=== PATIENT | female | born 1960 | race Caucasian/White ===

== ENCOUNTER 2017-04-21 10:41 | Outpatient (CLI) | payer BC ==
[~2017-04-21] VITALS: Ht 162.6 cm; Wt 89.9 kg
[2017-04-21] MEDS ORDERED: FLUO40CA12 PO (10:52)
[2017-04-21] MEDS ORDERED: CYCL10TA9 PO (10:52)
[2017-04-21] MEDS ORDERED: ALPR0.5T PO (10:52)
[2017-04-21 10:57] VITALS: BP 167/96
[2017-04-21 11:28] LABS: BASOPHILS % (AUTO) 1 % (0-10); EOSINOPHILS # (AUTO) 0.2 10^3/uL (0.0-0.3); EOSINOPHILS % (AUTO) 3 % (0-10); LYMPHOCYTES # (AUTO) 2.8 X 10^3 (1.0-4.0); LYMPHOCYTES % (AUTO) 36 % (12-44); MEAN CORPUSCULAR HEMOGLOBIN 32 PG (25-34); MEAN CORPUSCULAR HGB CONC 34 G/DL (32-36); MEAN CORPUSCULAR VOLUME 96 FL (80-99); MEAN PLATELET VOLUME 9.9 FL (7.4-10.4); MONOCYTES # (AUTO) 0.5 X 10^3 (0.0-1.0); MONOCYTES % (AUTO) 6 % (0-12); NEUTROPHILS # (AUTO) 4.2 X 10^3 (1.8-7.8); NEUTROPHILS % (AUTO) 55 % (42-75); PLATELET COUNT 273 10^3/uL (130-400); RED BLOOD COUNT 4.61 10^6/uL (4.35-5.85); RED CELL DISTRIBUTION WIDTH 12.6 % (10.0-14.5); WHITE BLOOD COUNT 7.6 10^3/uL (4.3-11.0)
--- NOTE | 2017-04-21 11:29 | Diagnostic Imaging Report ---
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 The heart size is borderline enlarged. There is no effusion or pneumothorax The mediastinum and julisa appear unremarkable. Impression: Borderline cardiomegaly. Dictated by: Dictated on workstation # [id number]
[2017-04-21 11:46] LABS: ANION GAP 13 MMOL/L (5-14); BLOOD UREA NITROGEN 8 MG/DL (7-18); BUN/CREATININE RATIO 10 (0-20); CALCIUM 9.2 MG/DL (8.5-10.1); CARBON DIOXIDE 22 MMOL/L (21-32); CHLORIDE 102 MMOL/L (98-107); CREATININE SERUM 0.82 MG/DL (0.60-1.30); GFR ESTIMATED > 60; GLUCOSE 203 MG/DL (70-105); HEMOLYSIS 19 (-100-29); ICTERUS 0.4 (-100-1.9); LIPEMIA 23 (-100-49); SODIUM 137 MMOL/L (135-145)
== END 2017-04-21 11:51 | disposition home or self-care (01) ==
LOC: PREOP 10:41
PROVIDERS: ATTEND Otolaryngology Otolaryngology/Facial Plastic Surgery
DX: Z01.818 Encounter for other preprocedural examination (principal); Z01.812 Encounter for preprocedural laboratory examination; Z11.2 Encounter for screening for other bacterial diseases; I51.7 Cardiomegaly; R22.1 Localized swelling, mass and lump, neck
CPT/HCPCS: 36415; 71020; 80048; 85025; 87081

== ENCOUNTER 2017-04-28 06:00 | Day surgery (SDC) | payer BC ==
[~2017-04-28] VITALS: Ht 162.6 cm; Wt 89.9 kg
[~2017-04-28 06:00] MED LIST: ALPR0.5T PO; CYCL10TA9 PO; FLUO40CA12 PO
--- OUTSIDE RECORDS SUMMARY | 2017-04-28 06:13 | XMS REPORT ---
Author Crow Bruner [facility] Address [address] [place], [place] [id number] Care Team Providers Care Blender Operator Name Role Phone Crow Muniz PCP Unavailable Crow Muniz PreferredProvider Unavailable Allergies and Adverse Reactions Name Reaction Notes Morphine Sulfate hallucinations ciprofloxacin rash erythromycin Lortab [place] Plan of Treatment Planned Activity Comments Planned Date Planned Time Plan/Goal CT NECK SOFT TISSUE W/WO CONTRAST 03/09/2017 12:00 AM Medications Active Name Start Date Estimated Completion Date SIG Comments alprazolam 0.5 mg oral tablet 01/31/2017 take 1 tablet by oral route 2 times a day as needed cyclobenzaprine 10 mg oral tablet 01/31/2017 05/01/2017 TAKE 1 TABLET BY MOUTH TWICE DAILY fluoxetine 40 mg oral capsule 03/02/2017 08/29/2017 take 1 capsule (40 mg) by oral route once daily sulfamethoxazole-trimethoprim 800-160 mg oral tablet 03/09/2017 03/19/2017 take 1 tablet by oral route every 12 hours for 10 days Name Start Date Expiration Date SIG Comments Premarin 0.625 mg oral tablet 12/15/2009 01/14/2010 TAKE 1 TABLET BY MOUTH DAILY albuterol sulfate 90 mcg/actuation inhalation HFA aerosol inhaler 01/13/2010 inhale 2 puff (90 mcg/Actuation) by inhalation route every 4 hours for 30 days Zithromax Z-Hitesh 250 mg oral tablet 03/23/2010 03/28/2010 take 2 tablets (500 mg) by oral route once daily for 1 day then 1 tablet (250 mg) by oral route once daily for 4 days gabapentin 100 mg oral capsule 03/09/2011 06/07/2011 take 1 capsule by oral route q am,& noon,& 2 q hs naproxen 500 mg oral tablet 06/16/2011 07/16/2011 TAKE 1 TABLET BY MOUTH TWICE DAILY WITH FOOD metronidazole 500 mg oral tablet 10/10/2011 10/20/2011 take 1 tablet by oral route every 8 hours for 10 days hydrochlorothiazide 25 mg oral tablet 08/11/2014 08/06/2015 take 1 tablet ( 25 mg) by oral route once daily for 90 days amoxicillin-pot clavulanate 500-125 mg oral tablet 02/09/2017 02/19/2017 take 1 tablet by oral route every 12 hours for 10 days amoxicillin-pot clavulanate 500-125 mg oral tablet 02/09/2017 02/19/2017 take 1 tablet by oral route every 12 hours for 10 days Lymph nodes improved but not resolved Discontinued Name Start Date Discontinued Date SIG Comments hydrochlorothiazide 12.5 mg oral tablet 02/07/2011 take 1 tablet (12.5 mg) by oral route once daily was taken off of it Darvocet-N 100 100-650 mg oral tablet 02/07/2011 take 1-2 tablets by oral route every 4 to 6 hours as needed no longer available Fish Oil (with DHA-EPA) oral capsule 02/07/2011 take 3 capsules by oral route daily no longer taking alprazolam 1 mg oral tablet 05/25/2010 08/05/2014 take 1 tablet (1 mg) by oral route 2 times per day No longer taking hydrocodone-acetaminophen 7.5-500 mg oral tablet 02/07/2011 02/14/2011 take 1 tablet by oral route every 6 hours as needed for pain Sedation Ultram 50 mg oral tablet 02/14/2011 06/25/2012 take 1 tablet (50 mg) by oral route every 6 hours as needed Aciphex 20 mg oral tablet,delayed release (DR/EC) 06/25/2012 take 1 tablet (20 mg) by oral route once daily /PRN "took samples" fluoxetine 40 mg oral capsule 11/14/2011 06/25/2012 TAKE 1 CAPSULE BY MOUTH EVERY DAY "took myself off" Tylenol-Codeine #3 300-30 mg oral tablet 06/25/2012 01/31/2017 take 1 tablet by oral route every 6 hours as needed ProAir HFA 90 mcg/actuation inhalation HFA aerosol inhaler 08/05/20142016 inhale 2 puffs by inhalation route every 6 hours as needed Problem List Description Status Onset Depression and anxiety Active Disc Bulge Active 01/2011 GERD Active H Pylori Active Migraine Active Muscle Spasm Active Vital Signs Date Time BP-Sys(mm[Hg] BP-Allyson(mm[Hg]) HR(bpm) RR(rpm) Temp WT HT HC BMI BSA BMI Percentile O2 Sat(%) 01/31/2017 9:03:00 AM 132 mmHg 80 mmHg 84 bpm 18 rpm 98.2 F 202 lbs 64 in 34.67 kg/m2 2.03 m2 96 % 05/21/2015 5:39:00 PM 160 mmHg 102 mmHg 88 bpm 16 rpm 98.2 F 64 in 93 % 08/11/2014 10:13:00 AM 162 mmHg 92 mmHg 71 bpm 20 rpm 98.2 F 208 lbs 64 in 35.70 kg/m2 2.06 m2 98 % 08/05/2014 3:54:00 PM 152 mmHg 80 mmHg 88 bpm 20 rpm 98.2 F 205 lbs 64 in 35.1878 kg/m 2.0491 m 98 % 06/25/2012 9:50:00 AM 130 mmHg 64 mmHg 70 bpm 18 rpm 98.6 F 224 lbs 64 in 38.45 kg/m2 2.14 m2 04/06/2011 1:39:00 PM 142 mmHg 90 mmHg 76 bpm 18 rpm 96.8 F 234 lbs 03/09/2011 1:58:00 PM 128 mmHg 90 mmHg 80 bpm 16 rpm 97.8 F 233 lbs 02/14/2011 10:38:00 AM 126 mmHg 70 mmHg 72 bpm 18 rpm 98.6 F 228 lbs 64 in 39.1357 kg/m 2.161 m 02/07/2011 10:15:00 AM 132 mmHg 82 mmHg 76 bpm 18 rpm 99.2 F 230 lbs 64 in 39.48 kg/m2 2.17 m2 01/13/2010 9:37:00 AM 128 mmHg 84 mmHg 80 bpm 16 rpm 99.7 F 219.5 lbs 64 in 37.6767 kg/m 2.1203 m Social History Name Description Comments 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 Denies illicit substance abuse Minimal Amount of Exercise (Once weekly or less) Did not serve in Lives with Mom Grown Children x3 lives alone x 19 years associates degree Alcohol Use - Rare less than 3-4 drinks per year 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..[facility] History of Procedures Date Ordered Description Order Status 10/10/2011 12:00 AM CLOSTRIDIUM AG EIA Reviewed 01/31/2017 12:00 AM COMPLETE CBC W/AUTO DIFF WBC Reviewed 03/02/2017 12:00 AM US EXAM OF HEAD AND NECK Reviewed 06/25/2012 12:00 AM Hepatobiliary ductal system imaging with functional assessment Reviewed 08/05/2014 12:00 AM COMPREHEN METABOLIC PANEL Reviewed 08/05/2014 12:00 AM LIPID PANEL Reviewed 08/05/2014 12:00 AM COMPLETE CBC W/AUTO DIFF WBC Reviewed 08/11/2014 12:00 AM BLOOD SMEAR INTERPRETATION Reviewed 05/21/2015 12:00 AM RADEX SPINE CERVICAL 2 OR 3 VIEWS Reviewed 05/21/2015 12:00 AM RADEX SPINE THORACIC 2 VIEWS Reviewed Results Summary Data and Description Results 10/10/2011 1:57 PM C DIFFICILE POSITIVE -- C DIFF TOXIN A OR B DETECTE 10/17/2011 12:36 PM C DIFFICILE NEGATIVE -- C DIFF TOXIN NOT DETECTED 08/07/2014 8:22 AM WBC 14.4 RBC 4.69 HGB 15.20 g/dLHCT 44.60 %MCV 95.0 fLMCH 32.40 pgMCHC 34.10 g/dLRDW SD 44 RDW CV 12.90 %MPV 10.20 fLPLT 260 NRBC# 0.00 NRBC% 0.0 %NEUT 62.40 %%LYMP 30.10 %%MONO 6.70 %%EOS 0.70 %%BASO 0.10 %#NEUT 8.97 #LYMP 4.34 #MONO 0.97 #EOS 0.10 #BASO 0.02 MANUAL DIFF SEE BELOW SEGS 62 LYMPHS 33 MONOS 4 EOS 1.0 %TRIGLYCERIDES 195.0 mg/dLCHOLESTEROL 165.0 mg/dLHDL 45.0 mg/dLTOT CHOL/HDL 3.7 LDL (CALC) 81.0 mg/dLGLUCOSE 98.0 mg/dLSODIUM 142.0 mmol/LPOTASSIUM 4.70 mmol/LCHLORIDE 103.0 mmol/LCO2 29.0 mmol/LBUN 13.0 mg/ dLCREATININE 0.80 mg/dLSGOT/AST 12.0 IU/LSGPT/ALT 15.0 IU/LALK PHOS 79.0 IU/ LTOTAL PROTEIN 7.40 g/dLALBUMIN 4.10 g/dLTOTAL BILI 0.30 mg/dLCALCIUM 9.40 mg/ dLAGE 56 GFR NonAA 74 GFR AA 90 eGFR 60 eGFR AA* 60 08/11/2014 11:13 AM WBC 17.9 RBC 4.94 HGB 16.30 g/dLHCT 46.60 %MCV 94.0 fLMCH 33.0 pgMCHC 35.0 g/dLRDW SD 45 RDW CV 12.90 %MPV 9.90 fLPLT 258 NRBC# 0.00 NRBC % 0.0 %NEUT 67.60 %%LYMP 25.50 %%MONO 5.20 %%EOS 1.50 %%BASO 0.20 %#NEUT 12.10 # LYMP 4.55 #MONO 0.93 #EOS 0.26 #BASO 0.03 WBC 17.9 RBC 4.94 HGB 16.30 g/dLHCT 46.60 %MCV 94.0 fLMCH 33.0 pgMCHC 35.0 g/dLRDW SD 45 RDW CV 12.90 %MPV 9.90 fLPLT 258 NRBC# 0.00 NRBC% 0.0 %NEUT 67.60 %%LYMP 25.50 %%MONO 5.20 %%EOS 1.50 % %BASO 0.20 %#NEUT 12.10 #LYMP 4.55 #MONO 0.93 #EOS 0.26 #BASO 0.03 SEGS 58 BANDS 3 LYMPHS 37 MONOS 1 EOS 1.0 % 01/31/2017 9:45 AM WBC 8.0 RBC 4.62 HGB 15.0 g/dLHCT 44.80 %MCV 97.0 fLMCH 32.50 pgMCHC 33.50 g/dLRDW SD 46 RDW CV 13.10 %MPV 9.70 fLPLT 237 NRBC# 0.00 NRBC% 0.0 %NEUT 47.60 %%LYMP 41.20 %%MONO 6.80 %%EOS 3.0 %%BASO 0.90 %#NEUT 3.81 #LYMP 3.29 #MONO 0.54 #EOS 0.24 #BASO 0.07 MANUAL DIFF NOT IND History Of Immunizations Not available. History of Past Illness Name Date of Onset Comments Depression and anxiety Migraine hypertriglyceridemia Rhinitis, Allergic Jan 13 2010 9:49AM GERD H Pylori Disc Bulge 01/2011 with radiculopathy heavy menses Muscle Spasm in back Back Pain with Radiation Feb 07 2011 10:16AM Neuropathy, right foot Feb 07 2011 10:16AM Back Pain with Radiation Feb 14 2011 10:38AM Neuropathy, right foot Feb 14 2011 10:38AM Degeneration of lumbar intervertebral disc Mar 09 2011 2:16PM Radiculopathy, lumbosacral Mar 09 2011 2:16PM Muscle Spasm Mar 09 2011 2:16PM Degeneration of lumbar intervertebral disc Apr 06 2011 1:47PM Radiculopathy, lumbosacral Apr 06 2011 1:47PM Muscle Spasm Apr 06 2011 1:47PM Diarrhea Oct 10 2011 12:04PM Abdominal Pain, Epigastric Jun 25 2012 9:51AM Hypertriglyceridemia Aug 05 2014 3:56PM Fatigue Aug 05 2014 3:56PM Neutrophilic leukocytosis Aug 11 2014 10:16AM Sciatica neuralgia, right Aug 05 2014 3:56PM Sciatica, right Improving Aug 11 2014 10:16AM Back pain May 21 2015 5:42PM Neck pain May 21 2015 5:42PM Adenopathy, cervical Jan 31 2017 9:05AM Depressive Disorder Jan 31 2017 9:05AM Bilateral Adenopathy, cervical Mar 02 2017 2:06PM Left Cervical lymphadenopathy Mar 09 2017 8:49AM Payers Insurance Name Company Name Plan Name Plan Number Policy Number Policy Group Number Start Date [employer] [place] [id number] N/A [employer] [place] [id number] Friday, 2008 Web-Tpa Web-Tpa [id number] Monday, 2012 [employer] [place] [id number] N/A History of Encounters Visit Date Visit Type Provider 01/31/2017 Office visit Crow Muniz DO 05/21/2015 Office visit Dorian Mack 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
--- OUTSIDE RECORDS SUMMARY | 2017-04-28 06:14 | XMS REPORT ---
Author Dorian Hamilton [facility] Address [address] [place], [place] [id number] Care Team Providers Care Clerical Specialist Name Role Phone Dorian Mack PCP Allergies and Adverse Reactions Name Reaction Notes Morphine Sulfate hallucinations ciprofloxacin rash Erythromycin Lortab [place] Plan of Treatment Planned Activity Comments Planned Date Planned Time Plan/Goal BLOOD SMEAR INTERPRETATION 08/11/2014 12:00 AM Medications Active Name Start Date Estimated Completion Date SIG Comments Tylenol-Codeine #3 300-30 mg oral tablet 06/25/2012 take 1 tablet by oral route every 6 hours as needed ProAir HFA 90 mcg/actuation inhalation HFA aerosol inhaler 08/05/2014 inhale 2 puffs by inhalation route every 6 hours as needed alprazolam 0.5 mg oral tablet 03/24/2015 take 1 tablet by oral route 2 times a day as needed Name Start Date Expiration Date SIG Comments [...] route every 8 hours for 10 days cyclobenzaprine 10 mg oral tablet 08/05/2014 11/03/2014 TAKE 1 TABLET BY MOUTH TWICE DAILY hydrochlorothiazide 25 mg oral tablet 08/11/2014 08/06/2015 take 1 tablet ( 25 mg) by oral route once daily for 90 days fluoxetine 40 mg oral capsule 09/10/2014 09/05/2015 take 1 capsule (40 mg) by oral route once daily in the morning for 90 days Discontinued Name Start Date Discontinued Date SIG [...] BY MOUTH EVERY DAY "took myself off" Problem List Description Status Onset Depression and anxiety Active Disc Bulge Active 01/2011 GERD Active H Pylori Active Migraine Active Muscle Spasm Active Vital Signs Date Time BP-Sys(mm[Hg] BP-Allyson(mm[Hg]) HR(bpm) RR(rpm) Temp WT HT HC BMI BSA BMI Percentile O2 Sat(%) 05/21/2015 5:39:00 PM 160 mmHg 102 mmHg 88 bpm 16 rpm 98.2 F 64 in 93 % 08/11/2014 10:13:00 AM 162 mmHg 92 mmHg 71 bpm 20 rpm 98.2 F 208 lbs 64 in 35.7028 kg/m 2.0641 m 98 % 08/05/2014 3:54:00 PM 152 mmHg 80 mmHg 88 bpm 20 rpm 98.2 F 205 lbs 64 in 35.19 kg/m2 2.05 m2 98 % 06/25/2012 9:50:00 AM 130 mmHg 64 mmHg 70 bpm 18 rpm 98.6 F 224 lbs 64 in 38.4491 kg/m 2.142 m 04/06/2011 1:39:00 PM 142 mmHg 90 mmHg 76 bpm 18 rpm 96.8 F 234 lbs 03/09/2011 1:58:00 PM 128 mmHg 90 mmHg 80 bpm 16 rpm 97.8 F 233 lbs 02/14/2011 10:38:00 AM 126 mmHg 70 mmHg 72 bpm 18 rpm 98.6 F 228 lbs 64 in 39.14 kg/m2 2.16 m2 02/07/2011 10:15:00 AM 132 mmHg 82 mmHg 76 bpm 18 rpm 99.2 F 230 lbs 64 in 39.479 kg/m 2.1705 m 01/13/2010 9:37:00 AM 128 mmHg 84 mmHg 80 bpm 16 rpm 99.7 F 219.5 lbs 64 in 37.68 kg/m2 2.12 m2 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 [...] 10/10/2011 12:00 AM CLOSTRIDIUM AG EIA Reviewed 06/25/2012 12:00 AM Hepatobiliary ductal system imaging with functional assessment Reviewed 08/05/2014 12:00 AM COMPREHEN METABOLIC PANEL Reviewed 08/05/2014 12:00 AM LIPID PANEL Reviewed 08/05/2014 12:00 AM COMPLETE CBC W/AUTO DIFF WBC Reviewed 05/21/2015 12:00 AM RADEX SPINE CERVICAL 2 OR 3 VIEWS Returned 05/21/2015 12:00 AM RADEX SPINE THORACIC 2 VIEWS Returned Results Summary Data and Description Results 10/10/2011 1:57 PM C DIFFICILE POSITIVE -- C DIFF TOXIN A OR B DETECTE 10/17/2011 12:36 PM C DIFFICILE NEGATIVE -- C DIFF TOXIN NOT DETECTED 08/07/2014 8:22 AM WBC 14.4 RBC 4.69 HGB 15.20 g/dLHCT 44.60 %MCV 95.0 fLMCH 32.40 pgMCHC 34.10 g/dLRDW CV 12.90 %MPV 10.20 fLPLT 260 %NEUT 62.40 %%LYMP 30.10 %%MONO 6.70 %%EOS 0.70 %%BASO 0.10 %#NEUT 8.97 #LYMP 4.34 #MONO 0.97 #EOS 0.10 #BASO 0.02 EOS 1.0 %TRIGLYCERIDES 195.0 mg/dLCHOLESTEROL 165.0 mg/dLHDL 45.0 mg/dLLDL (CALC) 81.0 mg/dLGLUCOSE 98.0 mg/dLSODIUM 142.0 mmol/LPOTASSIUM 4.70 mmol/LCHLORIDE 103.0 mmol/LCO2 29.0 mmol/LBUN 13.0 mg/dLCREATININE 0.80 mg/ dLSGOT/AST 12.0 IU/LSGPT/ALT 15.0 IU/LALK PHOS 79.0 IU/LTOTAL PROTEIN 7.40 g/ dLALBUMIN 4.10 g/dLTOTAL BILI 0.30 mg/dLCALCIUM 9.40 mg/dLeGFR 60 08/11/2014 11:13 AM WBC 17.9 RBC 4.94 HGB 16.30 g/dLHCT 46.60 %MCV 94.0 fLMCH 33.0 pgMCHC 35.0 g/dLRDW CV 12.90 %MPV 9.90 fLPLT 258 %NEUT 67.60 %%LYMP 25.50 % %MONO 5.20 %%EOS 1.50 %%BASO 0.20 %#NEUT 12.10 #LYMP 4.55 #MONO 0.93 #EOS 0.26 # BASO 0.03 WBC 17.9 RBC 4.94 HGB 16.30 g/dLHCT 46.60 %MCV 94.0 fLMCH 33.0 pgMCHC 35.0 g/dLRDW CV 12.90 %MPV 9.90 fLPLT 258 %NEUT 67.60 %%LYMP 25.50 %%MONO 5.20 % %EOS 1.50 %%BASO 0.20 %#NEUT 12.10 #LYMP 4.55 #MONO 0.93 #EOS 0.26 #BASO 0.03 EOS 1.0 % History Of Immunizations Not available. History of [...] 5:42PM Neck pain May 21 2015 5:42PM Payers Insurance Name Company Name Plan Name Plan Number Policy Number Policy Group Number Start Date [employer] [place] [id number] N/A [employer] [place] [id number] Friday, 2008 Web[employer] Web[employer]Tpa [id number] Monday, 2012 History of Encounters Visit Date Visit Type Provider 05/21/2015 Office visit Dorian Mack APRN 08/11/2014 Office visit Crow Muniz DO 08/05/2014 Office visit Crow Muniz DO 06/25/2012 Office visit Crow Muniz DO 04/06/2011 Office visit Vitaliy Lawson MD 03/10/2011 [facility] Vitaliy Lawson MD 03/09/2011 Office visit Vitaliy Lawson MD 02/14/2011 Office visit Crow Muniz DO 02/07/2011 Office visit Crow Muniz DO 01/14/2010 Nurse visit Genet Giordano MD 01/13/2010 Office visit Genet Giordano MD
--- OUTSIDE RECORDS SUMMARY | 2017-04-28 06:14 | XMS REPORT ---
Author Crow Bruner [facility] Address [address] [place], [place] [id number] Care Team Providers Care Cloth Covered Helmet Puller Name Role Phone Crow Muinz PCP Unavailable Crow Muniz PreferredProvider Unavailable Allergies and Adverse Reactions Name Reaction Notes Morphine Sulfate hallucinations ciprofloxacin rash erythromycin Lortab [place] Plan of Treatment Not available. Medications Active Name Start Date Estimated Completion Date SIG Comments amoxicillin-pot clavulanate 500-125 mg oral tablet 01/31/2017 02/10/2017 take 1 tablet by oral route every 12 hours for 10 days alprazolam 0.5 mg oral tablet 01/31/2017 take 1 tablet by oral route 2 times a day as needed cyclobenzaprine 10 mg oral tablet 01/31/2017 05/01/2017 TAKE 1 TABLET BY MOUTH TWICE DAILY fluoxetine 20 mg oral capsule 01/31/2017 03/02/2017 take 1 capsule (20 mg) by oral route once daily for 1 week then 2 capsules once a day Name Start Date Expiration Date SIG Comments [...] oral route once daily for 90 days Discontinued Name Start Date [...] AM COMPLETE CBC W/AUTO DIFF WBC Reviewed 06/25/2012 12:00 AM Hepatobiliary ductal system [...] 9:05AM Depressive Disorder Jan 31 2017 9:05AM Payers Insurance Name Company Name Plan Name Plan Number Policy Number Policy Group Number Start Date [employer] [place] [id number] N/A [employer] [place] [id number] Friday, 2008 Web[employer] Web[employer]Tpa [id number] Monday, 2012 [employer] [place] [id number] N/A History of Encounters Visit Date Visit Type Provider 01/31/2017 Office visit Crow Muniz DO 05/21/2015 Office visit Dorian Mack APRN 08/11/2014 Office visit Corw Muniz DO 08/05/2014 Office visit Crow Muniz DO 06/25/2012 Office visit Crow Muniz DO 04/06/2011 Office visit Vitaliy Lawson MD 03/10/2011 [facility] Vitaliy Lawson MD 03/09/2011 Office visit Vitaliy Lawson MD 02/14/2011 Office visit Crow Muniz DO 02/07/2011 Office visit Crow Muniz DO 01/14/2010 Nurse visit Genet Giordano MD 01/13/2010 Office visit Genet Giordano MD
--- OUTSIDE RECORDS SUMMARY | 2017-04-28 06:14 | XMS REPORT ---
Author Author [facility] Organization [facility] Address [address] [place], [place] [id number] Care Team Providers Care Revolving Inventory Clerk Name Role Phone PCP Unavailable Allergies and Adverse Reactions Name Reaction Notes Morphine Sulfate hallucinations ciprofloxacin rash Erythromycin Lortab [place] Plan of Treatment Planned Activity Comments Planned Date Planned Time Plan/Goal BLOOD SMEAR INTERPRETATION 08/11/2014 12:00 AM Medications Active Name Start Date Estimated Completion Date SIG Comments Tylenol-Codeine #3 Oral tablet 300-30 mg 06/25/2012 take 1 tablet by oral route every 6 hours as needed ProAir HFA inhalation HFA aerosol inhaler 90 mcg/actuation 08/05/2014 inhale 2 puffs by inhalation route every 6 hours as needed hydrochlorothiazide oral tablet 25 mg 08/11/2014 08/06/2015 take 1 tablet ( 25 mg) by oral route once daily for 90 days fluoxetine oral capsule 40 mg 09/10/2014 09/05/2015 take 1 capsule (40 mg) by oral route once daily in the morning for 90 days alprazolam oral tablet 0.5 mg 03/24/2015 take 1 tablet by oral route 2 times a day as needed Name Start Date Expiration Date SIG Comments Premarin Oral Tablet 0.625 mg 12/15/2009 01/14/2010 TAKE 1 TABLET BY MOUTH DAILY Albuterol Sulfate Inhalation HFA Aerosol Inhaler 90 mcg/Actuation 01/13/2010 inhale 2 puff (90 mcg/Actuation) by inhalation route every 4 hours for 30 days Zithromax Z-Hitesh Oral Tablet 250 mg 03/23/2010 03/28/2010 take 2 tablets (500 mg) by oral route once daily for 1 day then 1 tablet (250 mg) by oral route once daily for 4 days gabapentin Oral Capsule 100 mg 03/09/2011 06/07/2011 take 1 capsule by oral route q am,& noon,& 2 q hs naproxen Oral Tablet 500 mg 06/16/2011 07/16/2011 TAKE 1 TABLET BY MOUTH TWICE DAILY WITH FOOD metronidazole Oral Tablet 500 mg 10/10/2011 10/20/2011 take 1 tablet by oral route every 8 hours for 10 days cyclobenzaprine oral tablet 10 mg 08/05/2014 11/03/2014 TAKE 1 TABLET BY MOUTH TWICE DAILY Discontinued Name Start Date Discontinued Date SIG Comments Hydrochlorothiazide Oral Tablet 12.5 mg 02/07/2011 take 1 tablet (12.5 mg) by oral route once daily was taken off of it Darvocet-N 100 Oral Tablet 100-650 mg 02/07/2011 take 1-2 tablets by oral route every 4 to 6 hours as needed no longer available Fish Oil Concentrate Oral Capsule 1000 mg 02/07/2011 take 3 capsules by oral route daily no longer taking Alprazolam Oral Tablet 1 mg 05/25/2010 08/05/2014 take 1 tablet (1 mg) by oral route 2 times per day No longer taking Hydrocodone-Acetaminophen Oral Tablet 7.5-500 mg 02/07/2011 02/14/2011 take 1 tablet by oral route every 6 hours as needed for pain Sedation Ultram Oral Tablet 50 mg 02/14/2011 06/25/2012 take 1 tablet (50 mg) by oral route every 6 hours as needed Aciphex Oral Tablet, Delayed Release (E.C.) 20 mg 06/25/2012 take 1 tablet (20 mg) by oral route once daily /PRN "took samples" fluoxetine Oral Capsule 40 mg 11/14/2011 06/25/2012 TAKE 1 CAPSULE BY MOUTH [...] 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 Minimal Amount of [...] AM COMPLETE CBC W/AUTO DIFF WBC Reviewed Results Summary Data and Description Results [...] Group Number Start Date [employer] [place] [id number] N/A [employer] [place] [id number] Friday, 2008 [employer] Web[employer]Tpa [id number] Monday, 2012 History of Encounters Visit Date Visit Type Provider 05/21/2015 Office visit Dorian Mack APRN 08/11/2014 Office visit Crow Muniz DO 08/05/2014 Office visit Crow Muniz DO 06/25/2012 Office visit Crow Muniz DO 04/06/2011 Office visit Vitaliy Lawson MD 03/10/2011 [facility] Vitaliy Lawson MD 03/09/2011 Office visit Vitaliy Lawson MD 02/14/2011 Office visit Crow Muniz DO 02/07/2011 Office visit Crow Muniz DO 01/14/2010 Nurse visit Genet Giordano MD 01/13/2010 Office visit Genet Giordano MD
--- OUTSIDE RECORDS SUMMARY | 2017-04-28 06:15 | XMS REPORT ---
Author Crow Bruner [facility] Address [address] [place], [place] [address] Care Team Providers Care Senior Resident Care Director Name Role Phone Crow Muniz PCP Unavailable Crow Muniz PreferredProvider Unavailable Allergies and Adverse Reactions Name Reaction Notes Morphine Sulfate hallucinations ciprofloxacin rash erythromycin Lortab [place] Plan of Treatment Planned Activity Comments Planned [...] (40 mg) by oral route once daily Name Start Date Expiration Date SIG Comments [...] route every 12 hours for 10 days Discontinued Name Start Date Discontinued Date [...] Group Number Start Date [employer] [place] [id number] N/A [employer] [place] [id number] Friday, 2008 Web[employer] Web[employer]Tpa [id number] Monday, 2012 [employer] [place] [id number] N/A History of Encounters Visit Date Visit Type Provider 01/31/2017 Office visit Crow Muniz DO 05/21/2015 Office visit Dorian Mack APRN 08/11/2014 Office visit Crow Muniz DO 08/05/2014 Office visit Crow Muniz DO 06/25/2012 Office visit Crow Muniz DO 04/06/2011 Office visit Vitaliy Lawson MD 03/10/2011 [facility] Vitaliy Lawson MD 03/09/2011 Office visit Vitaliy Lawson MD 02/14/2011 Office visit Crow Muniz DO 02/07/2011 Office visit Crow Muniz DO 01/14/2010 Nurse visit Genet Giordano MD 01/13/2010 Office visit Genet Giordano MD
--- OUTSIDE RECORDS SUMMARY | 2017-04-28 06:15 | XMS REPORT ---
Author Author Crow Muniz [facility] Address [address] [place], [place] [address] Care Team Providers Care Buffing Wheel Former Automatic Name Role Phone Crow Muniz PCP Unavailable Crow Muniz PreferredProvider Unavailable Allergies and Adverse Reactions Name Reaction Notes Morphine Sulfate hallucinations ciprofloxacin rash erythromycin Lortab [place] Plan of Treatment Not available. Medications Active [...] week then 2 capsules once a day amoxicillin-pot clavulanate 500-125 mg oral tablet 02/09/2017 [...] Group Number Start Date [employer] [place] [id number] N/A [employer] [place] [id number] Friday, 2008 Web[employer] Web-Tpa [id number] Monday, 2012 [employer] [place] [id number] N/A History of Encounters Visit Date Visit Type Provider 01/31/2017 Office visit Crow Muniz DO 05/21/2015 Office visit Dorian Mack APRN 08/11/2014 Office visit Crow Muniz DO 08/05/2014 Office visit Crow Muniz DO 06/25/2012 Office visit Crow Muniz DO 04/06/2011 Office visit Vitaliy Lawson MD 03/10/2011 [facility] Vitaliy Lawson MD 03/09/2011 Office visit Vitaliy Lawson MD 02/14/2011 Office visit Crow Muniz DO 02/07/2011 Office visit Crow Muniz DO 01/14/2010 Nurse visit Genet Giordano MD 01/13/2010 Office visit Genet Giordano MD
--- OUTSIDE RECORDS SUMMARY | 2017-04-28 06:16 | XMS REPORT | CCD ---
Author Author TRAM MAYER Organization Unknown Address [address] [place], [place] [id number] Care Team Providers Care Implementation Specialist Payroll Name Role Phone LUAN ER, TELMA DO Attphys ASHLAND ER, TELMA DO Prisurg Vital Signs Unknown or Not Available. Allergies Allergy Code Allergy Type Reaction Status CIPRO 287858 Drug allergy Active KEFLEX 280712 Drug allergy Active MORPHINE 7052 Drug allergy Active DILAUDID 017022 Drug allergy Active Procedures Unknown or Not Available. History of Immunizations Unknown or Not Available. Problems Problem Code Start Date Resolved Date Status CHOLECYSTITIS WITH CHOLELITHIASIS 34850495 Active S/P LAPAROSCOPIC CHOLECYSTECTOMY 16884329 Active Results Unknown or Not Available. Medications Unknown or Not Available. Medications Administered Unknown or Not Available. Encounters Encounter Diagnosis Diagnosis Code Start Date SCIATICA 7243 08/03/2014 Social History Smoking Status Code Start Date End Date Current every day smoker [id number] Patient Decision Aids Unknown or Not Available. Discharge Instructions You were admitted to [facility] on 08/03/2014 with a principal diagnosis of SCIATICA. You were discharged from [facility] on 08/04/2014. Should you have any questions prior to discharge, please contact a member of your healthcare team. If you have left the hospital and have any questions, please contact your primary care physician. Chief Complaint and Reason For Visit Chief Complaint Date of Onset PAIN IN RIGHT HIP FOOT PAIN Function Status Unknown or Not Available. Referral/Transition of Care Unknown or Not Available.
--- OUTSIDE RECORDS SUMMARY | 2017-04-28 06:16 | XMS REPORT | Continuity of Care Document ---
Author Author [facility] Address Unknown Phone Unavailable Allergies Medications Problems Procedures Results Encounters ACCT No. Visit Date/Time Discharge Status Pt. Type Provider Facility Loc./Unit Complaint [id number] 06/08/2015 22:23:28 06/08/2015 23: 59:59 CLS Outpatient Dorian Mack [id number] 08/11/2014 10:59:31 08/11/2014 23: 59:59 CLS Outpatient Crow Muniz [id number] 08/05/2014 16:46:26 08/05/2014 23: 59:59 CLS Outpatient Crow Muniz [id number] 01/31/2017 17:25:06 ACT Outpatient Crow Muniz
--- OUTSIDE RECORDS SUMMARY | 2017-04-28 06:16 | XMS REPORT ---
Author Author Dorian Mack [facility] Address [address] [place], [place] [phone] Care Team Providers Care Tower Hoist Operator Name Role Phone Dorian Mack PCP Allergies and Adverse Reactions Name Reaction Notes Morphine Sulfate hallucinations ciprofloxacin rash erythromycin Lortab [place] Plan of Treatment Planned Activity Comments Planned Date Planned Time Plan/Goal Peripheral blood smear review by pathologist 08/11/2014 12:00 AM Medications Active Name Start [...] LYMPHS 37 MONOS 1 EOS 1.0 % History Of Immunizations Not [...] Policy Number Policy Group Number Start Date [facility] [id number] N/A [facility] [id number] Friday, 2008 [employer] Web[employer]Tpa [id number] Monday, 2012 History of Encounters Visit Date [...]
--- OUTSIDE RECORDS SUMMARY | 2017-04-28 06:17 | XMS REPORT ---
Author Crow Bruner [facility] Address [address] [place], [place] [phone] Care Team Providers Care Industrial Services Worker Name Role Phone Crow Muniz PCP Unavailable Crow Muniz PreferredProvider Unavailable Allergies and Adverse Reactions Name Reaction Notes Morphine Sulfate hallucinations ciprofloxacin rash erythromycin Lortab [place] Plan of Treatment Planned Activity Comments Planned Date Planned Time Plan/Goal US SOFT TISSUES HEAD AND NECK 03/02/2017 12:00 AM Medications Active Name Start Date [...] Bilateral Adenopathy, cervical Mar 02 2017 2:06PM Payers Insurance Name Company Name Plan Name Plan Number Policy Number Policy Group Number Start Date [employer] [place] [id number] N/A [employer] [facility] [id number] Friday, 2008 [employer] Web[employer]Tpa [id number] Monday, 2012 [employer] [place] [id number] N/A History of Encounters Visit Date Visit Type Provider 01/31/2017 Office visit Crow Muniz DO 05/21/2015 Office visit Dorian Mack APRN 08/11/2014 Office visit Crow Muniz DO 08/05/2014 Office visit Crow Muniz DO 06/25/2012 Office visit Crow Muniz DO 04/06/2011 Office visit Vitaliy Lawson MD 03/10/2011 [facility] Vitaliy Lawson MD 03/09/2011 Office visit Vitaliy Lawson MD 02/14/2011 Office visit Crow Muniz DO 02/07/2011 Office visit Crow Muniz DO 01/14/2010 Nurse visit Genet Giordano MD 01/13/2010 Office visit Genet Giordano MD
--- OUTSIDE RECORDS SUMMARY | 2017-04-28 06:17 | XMS REPORT ---
Author Crow Bruner [facility] Address [address] [place], [place] [phone] Care Team Providers Care Medical Management Trainer Name Role Phone Crow Muniz PCP Unavailable Crow Muniz PreferredProvider Unavailable Allergies and Adverse Reactions Name Reaction Notes Morphine Sulfate hallucinations ciprofloxacin rash erythromycin Lortab [place] Plan of Treatment Planned Activity Comments Planned [...] Group Number Start Date [employer] [place] [id number] N/A [employer] [place] [id number] Friday, 2008 [employer]pa [id number] Monday, 2012 [employer] [place] [id number] N/A History of Encounters Visit Date Visit Type Provider 01/31/2017 Office visit Crow Muniz DO 05/21/2015 Office visit Dorian Mack APRN 08/11/2014 Office visit Crow Muniz DO 08/05/2014 Office visit Crow Muniz DO 06/25/2012 Office visit Crow Muniz DO 04/06/2011 Office visit Vitaliy Lawson MD 03/10/2011 [facility] Vitaliy Lawson MD 03/09/2011 Office visit Vitaliy Lawson MD 02/14/2011 Office visit rCow Muniz DO 02/07/2011 Office visit Crow Muniz DO 01/14/2010 Nurse visit Genet Giordano MD 01/13/2010 Office visit Genet Giordano MD
--- OUTSIDE RECORDS SUMMARY | 2017-04-28 06:18 | XMS REPORT ---
Author Crow Bruner [facility] Address [address] [place], [place] [phone] Care Team Providers Care Computer Technology Trainer Name Role Phone Crow Muniz PCP Unavailable Crow Muniz PreferredProvider Unavailable Allergies and Adverse Reactions Name Reaction Notes Morphine Sulfate hallucinations ciprofloxacin rash erythromycin Lortab [place] Plan of Treatment Planned Activity Comments Planned [...] Group Number Start Date [employer] [place] [id number] N/A [employer] [place] [id number] Friday, 2008 [employer] [id number] Monday, 2012 [employer] [place] [id number] N/A History of Encounters Visit Date Visit Type Provider 01/31/2017 Office visit Crow Muniz DO 05/21/2015 Office visit Dorian Mack SUPERVISOR WET ROOM 08/11/2014 Office visit Crow Muniz DO 08/05/2014 [...]
--- OUTSIDE RECORDS SUMMARY | 2017-04-28 06:19 | XMS REPORT ---
Author Crow Bruner [facility] Address [address] [place], [place] [phone] Care Team Providers Care Supervisor Multifocal Lens Name Role Phone Crow Muniz PCP Unavailable Crow Muniz PreferredProvider Unavailable Allergies and Adverse Reactions Name Reaction Notes Morphine Sulfate hallucinations ciprofloxacin rash erythromycin Lortab [place] Plan of Treatment Planned Activity Comments Planned [...] Group Number Start Date [employer] [place] [id number] N/A [employer] [facility] [id number] Friday, 2008 [employer]Tpa [id number] Monday, 2012 [employer] [place] [id number] N/A History of Encounters Visit Date Visit Type Provider 01/31/2017 Office visit Crow Muniz DO 05/21/2015 Office visit Dorian Mack APRN 08/11/2014 Office visit Crow Muniz DO 08/05/2014 Office visit Crow Muniz DO 06/25/2012 Office visit Crow Muniz DO 04/06/2011 Office visit Vitaliy Lawson MD 03/10/2011 [facility] Vitaliy Lawson MD 03/09/2011 Office visit Vitaliy Lawson MD 02/14/2011 Office visit Crow Muniz DO 02/07/2011 Office visit Crow Muniz DO 01/14/2010 Nurse visit Genet Giordano MD 01/13/2010 Office visit Genet Giordano MD
--- OUTSIDE RECORDS SUMMARY | 2017-04-28 06:19 | XMS REPORT ---
Author Author Crow Muniz [facility] Address [address] [place], [place] [phone] Care Team Providers Care Tracer Bullet Section Supervisor Name Role Phone Crow Muniz PCP Unavailable Crow Muniz PreferredProvider Unavailable Allergies and Adverse Reactions Name Reaction Notes Morphine Sulfate hallucinations ciprofloxacin rash erythromycin Lortab [place] Plan of Treatment Not available. Medications Active [...] US EXAM OF HEAD AND NECK Reviewed 03/09/2017 12:[address] SFT TSUE NCK W/O & W/DYE Reviewed 06/25/2012 12:00 AM Hepatobiliary ductal system imaging with functional assessment Reviewed 08/05/2014 12:00 AM COMPREHEN METABOLIC PANEL Reviewed 08/05/2014 12:00 AM LIPID PANEL Reviewed 08/05/2014 12:00 AM COMPLETE CBC W/AUTO DIFF WBC Reviewed 08/11/2014 12:00 AM BLOOD SMEAR INTERPRETATION Reviewed 05/21/2015 12:00 AM RADEX SPINE CERVICAL 2 OR 3 VIEWS Reviewed 05/21/2015 12:00 AM RADEX SPINE THORACIC 2 VIEWS Reviewed Results Summary Date and Description Results 10/10/2011 1:57 PM C [...] Number Start Date [employer] [place] [id number] N/A [employer] [place] [id number] Friday, 2008 [employer] Web[employer]Tpa [id number] Monday, 2012 [employer] [place] [id number] N/A History of Encounters Visit Date Visit Type Provider 01/31/2017 Office visit Crow Muniz DO 05/21/2015 Office visit Dorian Mack WIRE COINER 08/11/2014 Office visit Crow Muniz DO 08/05/2014 Office visit Crow Muniz DO 06/25/2012 Office visit Crow Muniz DO 04/06/2011 Office visit Vitaliy Lawson MD 03/10/2011 [facility] Vitaliy Lawson MD 03/09/2011 Office visit Vitaliy Lawson MD 02/14/2011 Office visit Crow Muniz DO 02/07/2011 Office visit Crow Muniz DO 01/14/2010 Nurse visit Genet Giordano MD 01/13/2010 Office visit Genet Giordano MD
--- OUTSIDE RECORDS SUMMARY | 2017-04-28 06:20 | XMS REPORT ---
Author Crow Bruner [facility] Address [address] [place], [place] [phone] Care Team Providers Care Product Safety Officer Name Role Phone Crow Muniz PCP Unavailable Crow Muniz PreferredProvider Unavailable Allergies and Adverse Reactions Name Reaction Notes Morphine Sulfate hallucinations ciprofloxacin rash erythromycin Lortab [place] Plan of Treatment Planned Activity Comments Planned [...] Number Start Date [employer] [place] [id number] N/A [employer] [facility] [id number] Friday, 2008 [employer] Web-Tpa [id number] Monday, 2012 [employer] [place] [id number] N/A History of Encounters Visit Date Visit Type Provider 01/31/2017 Office visit Crow Muniz DO 05/21/2015 Office visit Dorian Mack APRN 08/11/2014 Office visit Crow Muniz DO 08/05/2014 Office visit Crow Muniz DO 06/25/2012 Office visit Crow Muniz DO 04/06/2011 Office visit Vitaliy Lawson MD 03/10/2011 [facility] Vitaliy Lawson MD 03/09/2011 Office visit Vitaliy Lawson MD 02/14/2011 Office visit Crow Muniz DO 02/07/2011 Office visit Crow Muniz DO 01/14/2010 Nurse visit Genet Giordano MD 01/13/2010 Office visit Genet Giordano MD
[2017-04-28 06:30] VITALS: BP 170/85
[2017-04-28] MEDS ORDERED: proPOfol 200 MG/20 ML (DIPRIVAN) VIAL IV ONE (06:40)
[2017-04-28] MEDS ORDERED: ONDANSETRON 4 MG/2 ML (SDV) Z0FRAN ONE (06:40)
[2017-04-28] MEDS ORDERED: LIDOCAINE PF 2% 5 ML (XYLOCAINE) VIAL ONE (06:40)
[2017-04-28] MEDS ORDERED: DEXAMETHASONE PF 10 MG/ML (DECADRON) VIAL ONE (06:40)
[2017-04-28] MEDS ORDERED: fentaNYL INJECTION 100 MCG/2 ML AMP ONE ×2 (06:41→08:34)
[2017-04-28] MEDS ORDERED: MIDAZOLAM 2 MG/2 ML (VERSED) VIAL ONE (06:41)
[2017-04-28] MEDS ORDERED: LIDOCAINE/EPI 1%-1:200,000 (XYLOCAINE) 30 ML VIAL ONE (06:48)
[2017-04-28] MEDS ORDERED: MUPIROCIN 2% OINT 22 GM (BACTROBAN) TUBE ONE (06:48)
[2017-04-28] MEDS: LACTATED RINGERS 1,000 ML IV PRN ×2 (07:00→08:10)
[2017-04-28] MEDS ORDERED: SEVOFLURANE (ULTANE) 15 ML INHAL SOLN ONE ×9 (07:09→09:21)
[2017-04-28] MEDS ORDERED: SUCCINYLCHOLINE INJ 100 MG/5 ML SYR ONE (07:33)
[2017-04-28] MEDS ORDERED: ROCURONIUM 50 MG/5 ML (ZEMURON) VIAL IV ONE (07:33)
--- NOTE | 2017-04-28 09:11 | Progress Note-Pre Operative ---
Pre-Operative Progress Note H&P Reviewed The H&P was reviewed, patient examined and no changes noted. Date Seen by Provider: Apr 28, 2017 Time Seen by Provider: : Date H&P Reviewed: Apr 28, 2017 Time H&P Reviewed: : Pre-Operative Diagnosis: Left Parotid Mass CATRACHITO MARTIN MD Apr 28, 2017 9:11 am
[2017-04-28] MEDS ORDERED: ACETAMINOPHEN 325 MG TABLET/CAPLET (TYLENOL) PO PRN (09:15)
[2017-04-28] MEDS ORDERED: LACTATED RINGERS 2,000 ML IV ONE (09:21)
[2017-04-28] MEDS ORDERED: HYDROmorphone (DILAUDID) 2 MG/ML VIAL IVP PRN (09:45)
[2017-04-28] MEDS ORDERED: fentaNYL INJECTION 100 MCG/2 ML AMP IVP PRN (09:45)
[2017-04-28] MEDS: D5 1/2 NS W/KCL 20 MEQ/L 1,000 ML IV SCH (10:53)
[2017-04-28 11:07] VITALS: BP 155/91
[2017-04-28] MEDS: APAP 300 MG/CODEINE 30 MG (TYLENOL #3) TAB PO PRN ×2 (12:37→21:26)
[2017-04-28 16:35] VITALS: BP 145/82
[2017-04-28 19:40] VITALS: BP 122/71
[2017-04-28 23:40] VITALS: BP 110/66
[2017-04-29] MEDS: D5 1/2 NS W/KCL 20 MEQ/L 1,000 ML IV SCH (03:33)
[2017-04-29 03:50] VITALS: BP 113/58
--- NOTE | 2017-04-29 06:14 | Progress Note-Standard ---
Standard Progress Note Progress Notes/Assess & Plan Date Seen by Provider: Apr 29, 2017 Time Seen by Provider: 06:10 Progress/Assessment & Plan ENT-Monika Patient has done well post-op Drain-minimal drainage dc'ed FAcial movements-normal mitzi diet Incision dry and flat will discharge after breakfast RTC-1 week Discharge isntructions given Discharge prescriptins in chart Final Diagnosis Left parotid mass-warthins tumor CATRACHITO MARTIN MD Apr 29, 2017 6:14 am
[2017-04-29 10:12] VITALS: BP 113/58
== END 2017-04-29 08:15 | disposition home or self-care (01) ==
LOC: SDC 06:00 → 4TH 11:03 → SDC 04-29 08:15
PROVIDERS: ATTEND Otolaryngology Otolaryngology/Facial Plastic Surgery
DX: D11.0 Benign neoplasm of parotid gland (principal); J45.909 Unspecified asthma, uncomplicated; F41.9 Anxiety disorder, unspecified; F32.9 Major depressive disorder, single episode, unspecified; F17.210 Nicotine dependence, cigarettes, uncomplicated; Z79.899 Other long term (current) drug therapy

== ENCOUNTER 2022-02-02 10:49 | Outpatient (RCR) | payer MEDICARE ==
[~2022-02-02 10:49] MED LIST changes: +CYCL10TA25 PO; -CYCL10TA9 PO
[2022-02-02 11:40] LABS: BASOPHILS # (AUTO) 0.1 10^3/uL (0.0-0.1); BASOPHILS % (AUTO) 1 % (0-10); EOSINOPHILS # (AUTO) 0.3 10^3/uL (0.0-0.3); EOSINOPHILS % (AUTO) 4 % (0-10); HEMATOCRIT 36 % (35-52); HEMOGLOBIN 12.3 g/dL (11.5-16.0); LYMPHOCYTES # (AUTO) 2.7 10^3/uL (1.0-4.0); LYMPHOCYTES % (AUTO) 39 % (12-44); MEAN CORPUSCULAR HEMOGLOBIN 32 pg (25-34); MEAN CORPUSCULAR HGB CONC 34 g/dL (32-36); MEAN CORPUSCULAR VOLUME 95 fL (80-99); MEAN PLATELET VOLUME 9.6 fL (9.0-12.2); MONOCYTES # (AUTO) 0.5 10^3/uL (0.0-1.0); MONOCYTES % (AUTO) 8 % (0-12); NEUTROPHILS # (AUTO) 3.4 10^3/uL (1.8-7.8); NEUTROPHILS % (AUTO) 49 % (42-75); PLATELET COUNT 247 10^3/uL (130-400); WHITE BLOOD COUNT 6.9 10^3/uL (4.3-11.0)
== END 2022-02-26 | disposition home or self-care (01) ==
LOC: ONC 10:49
PROVIDERS: ATTEND Internal Medicine Hematology & Oncology
DX: D72.10 Eosinophilia, unspecified (principal)
CPT/HCPCS: 85025; G0463; 36415; 99214

== ENCOUNTER → 2022-03-30 | Outpatient (CLI) | payer MEDICARE ==
--- NOTE | 2022-03-30 17:35 | Diagnostic Imaging Report ---
PROCEDURE: CT neck soft tissue without contrast. TECHNIQUE: Multiple contiguous axial images were obtained through the neck without the use of intravenous contrast. Auto Exposure Controls were utilized during the CT exam to meet ALARA standards for radiation dose reduction. INDICATION: Neck mass. FINDINGS: There are surgical changes from prior lymph node dissection in the right kaleb-neck. No cervical lymphadenopathy. No recurrent neck mass. Thyroid, submandibular and parotid glands are all normal in appearance. Parapharyngeal fat spaces are normal. No oropharyngeal fluid collection. Airway is widely patent. No abnormal thickening of the epiglottis. The true and false vocal folds are normal in appearance. A small amount of calcification is present in the bilateral carotid bulbs. ACDF has been performed in the cervical spine. Lung apices are clear. IMPRESSION: 1. Prior surgical changes from lymph node and/or mass resection in the right aspect of the neck. No features of recurrent mass or lymphadenopathy. Dictated by: Dictated on workstation # [id number]
== END ==
LOC: RAD 13:58
PROVIDERS: ATTEND Family Medicine
DX: R22.1 Localized swelling, mass and lump, neck (principal); R05.9 Cough, unspecified; F17.200 Nicotine dependence, unspecified, uncomplicated; Z98.890 Other specified postprocedural states
CPT/HCPCS: 70490